=== PATIENT | male | born 1955 | race Caucasian/White ===

== ENCOUNTER 2020-06-24 11:51 | Emergency (ER) | payer OTHER ==
[~2020-06-24] VITALS: Ht 182.9 cm; Wt 67.6 kg
[~2020-06-24 11:51] MED LIST: AMLO-26 PO; CLIN-178 PO; CLOT1CRE90 TP; DEPER500 PO; QUET200T PO; TRIF10TA1 PO; TRIH2TAB21 PO; [UNRECOGNIZED DRUG - CODE] PO
[2020-06-24 11:57] VITALS: BP 99/70
--- NOTE | 2020-06-24 12:00 | NUR ---
Pt ambulated to ER bed 11.
--- NOTE | 2020-06-24 12:02 | NUR ---
PT TAKEN TO BED 11.
--- NOTE | 2020-06-24 12:07 | NUR ---
65 Y/O MALE C/O EAR DRAINAGE FROM BOTH EARS X5 DAYS WITH 3/10 PAIN DESCRIBES POUNDING RADIATES TO HEADACHE. PMH: SCHIZOPHRENIA NKA
[2020-06-24] MEDS ORDERED: THO25 PO (12:10)
[2020-06-24] MEDS ORDERED: ALPR0.5T2 PO (12:10)
[2020-06-24] MEDS ORDERED: ABI10 PO (12:10)
[2020-06-24] MEDS ORDERED: LISI-487 PO (12:10)
[2020-06-24] MEDS ORDERED: IBUP-2213 PO (13:11)
[2020-06-24] MEDS ORDERED: cortisporin otic OT (13:11)
[2020-06-24 13:20] VITALS: BP 99/70
--- NOTE | 2020-06-24 13:20 | NUR ---
Patient discharged with v/s stable. Written and verbal after care instructions given and explained. Patient alert, oriented and verbalized understanding of instructions. Ambulatory with steady gait. All questions addressed prior to discharge. ID band removed. Patient advised to follow up with PMD. Rx of CORTISPORIN & IBUPROFEN given. Patient educated on indication of medication including possible reaction and side effects. Opportunity to ask questions provided and answered.
== END 2020-06-24 13:20 | disposition home or self-care (01) ==
LOC: MED 11:51
DX: H60.93 Unspecified otitis externa, bilateral (principal); Z79.899 Other long term (current) drug therapy
CPT/HCPCS: 99283

== ENCOUNTER 2020-10-18 11:10 | Emergency (ER) | payer OTHER ==
[~2020-10-18] VITALS: Ht 180.3 cm; Wt 71.2 kg
[~2020-10-18 11:10] MED LIST changes: +ABI10 PO; +ALPR0.5T2 PO; -CLIN-178 PO; -CLOT1CRE90 TP; -DEPER500 PO; +IBUP-2213 PO; +LISI-487 PO; -QUET200T PO; +THO25 PO; -TRIF10TA1 PO; -TRIH2TAB21 PO; -[UNRECOGNIZED DRUG - CODE] PO; +cortisporin otic OT
[2020-10-18 11:19] VITALS: BP 111/80
--- NOTE | 2020-10-18 11:29 | NUR ---
PT AMBULATED TO RESTROOM FOR URINE SAMPLE
--- NOTE | 2020-10-18 11:39 | NUR ---
65/M presents to ED with c/o hematuria. Patient states he has had intermittent episodes of hematuria for one year, states "now it is happening all the time." Patient states he notified his doctor 3 months ago and was given Rx of unknown antibiotics but states no relief. Patient c/o right lower quadrant pain, non radiating, denies back or flank pain, states burning upon urination is present. Patient denies taking anything at home for pain, denies fever or chills.
[2020-10-18] MEDS ORDERED: KETOROLAC 30 MG/ML VIAL IM ONE (12:10)
--- NOTE | 2020-10-18 12:16 | NUR ---
PT TAKEN TO CT VIA W/C
--- NOTE | 2020-10-18 12:21 | NUR ---
PT BACK FROM CT
[2020-10-18 12:44] LABS: BASOPHILS # (AUTO) 0.1 K/uL (0.00-0.22); BASOPHILS % (AUTO) 1.7 % (0.0-2.0); EOSINOPHILS # (AUTO) 0.1 K/uL (0-0.4); HEMATOCRIT 27.4 % (36-52); MEAN CORPUSCULAR HEMOGLOBIN 29 pg (27-31); MEAN CORPUSCULAR HGB CONC 33 g/dL (33-37); MEAN CORPUSCULAR VOLUME 88.3 fL (80-94); MONOCYTES # (AUTO) 0.4 K/uL (0.8-1.0); MONOCYTES % (AUTO) 8.1 % (1.7-9.3); NEUTROPHILS # (AUTO) 3.3 K/uL (1.8-7.7); NEUTROPHILS % (AUTO) 68.2 % (42.2-75.2); PLATELET COUNT (AUTO) 254 K/uL (140-450); RED CELL DISTRIBUTION WIDTH 16.2 % (11.6-13.7); WHITE BLOOD COUNT (AUTO) 4.8 K/uL (4.8-10.8)
[2020-10-18 13:09] LABS: APPEARANCE,URINE CLOUDY (CLEAR); BILIRUBIN,URINE 1+ (NEGATIVE); BLOOD, URINE 3+ (NEGATIVE); COLOR,URINE RED (YELLOW); LEUKOCYTE ESTERASE ,URINE TRACE (NEGATIVE); NITRITE, URINE NEGATIVE (NEGATIVE); UGLUCOSE NEGATIVE (NEGATIVE)
[2020-10-18 13:14] LABS: ALBUMIN 3.5 g/dL (3.4-5.0); ANION GAP 11.3 (8-16); CARBON DIOXIDE 25.4 mmol/L (21-32); CREATININE 1.5 mg/dL (0.6-1.3); POTASSIUM 3.7 mmol/L (3.5-5.1); TOTAL BILIRUBIN 0.1 mg/dL (0.0-1.0)
[2020-10-18 13:20] LABS: RBC,URINE TOO NUMEROUS TO COUN /HPF (0-5); WBC,URINE 0-5 /HPF (0-5)
[2020-10-18] MEDS ORDERED: ACET-10509 PO (14:30)
--- NOTE | 2020-10-18 14:44 | NUR ---
Called [facility] for patient pickup. ETA 25 min.
--- NOTE | 2020-10-18 14:48 | NUR ---
Patient discharged with v/s stable. Written and verbal after care instructions given and explained. Patient alert, oriented and verbalized understanding of instructions. Ambulatory with steady gait. All questions addressed prior to discharge. ID band removed. Patient advised to follow up with PMD. Rx of Tylenol Extra Strength given. Patient educated on indication of medication including possible reaction and side effects. Opportunity to ask questions provided and answered.
[2020-10-18 14:49] VITALS: BP 115/74
== END 2020-10-18 14:48 | disposition home or self-care (01) ==
LOC: MED 11:10
DX: R31.9 Hematuria, unspecified (principal); N28.9 Disorder of kidney and ureter, unspecified; Z79.899 Other long term (current) drug therapy
CPT/HCPCS: 36415; 74176; 80053; 81001; 83690; 85025; 96372; 99284; J1885; 81002

== ENCOUNTER 2021-08-06 17:11 | Emergency (ER) | payer OTHER ==
[~2021-08-06] VITALS: Ht 180.3 cm; Wt 70.3 kg
[~2021-08-06 17:11] MED LIST changes: +ACET-10509 PO
[2021-08-06 17:16] VITALS: BP 115/80
[2021-08-06 18:31] LABS: BASOPHILS % (AUTO) 0.9 % (0.0-2.0); EOSINOPHILS % (AUTO) 0.1 % (0.0-4.0); HEMATOCRIT 27.4 % (36-52); HEMOGLOBIN 8.9 g/dL (12.0-18.0); LYMPHOCYTES # (AUTO) 0.8 K/uL (2.0-11.5); LYMPHOCYTES % (AUTO) 25.5 % (20.5-51.1); MEAN CORPUSCULAR HEMOGLOBIN 28 pg (27-31); MEAN CORPUSCULAR HGB CONC 32 g/dL (33-37); MONOCYTES # (AUTO) 0.2 K/uL (0.8-1.0); MONOCYTES % (AUTO) 5.7 % (1.7-9.3); NEUTROPHILS # (AUTO) 2.1 K/uL (1.8-7.7); NEUTROPHILS % (AUTO) 67.8 % (42.2-75.2); PLATELET COUNT (AUTO) 145 K/uL (140-450); RED BLOOD CELL COUNT(AUTO) 3.14 MIL/uL (4.20-6.10); RED CELL DISTRIBUTION WIDTH 27.7 % (11.6-13.7); WHITE BLOOD COUNT (AUTO) 3.1 K/uL (4.8-10.8)
[2021-08-06 18:52] LABS: ALBUMIN 3.2 g/dL (3.4-5.0); ANION GAP 11.3 (8-16); ASPARTATE AMINOTRANSFERASE 18 U/L (15-37); CARBON DIOXIDE 26.1 mmol/L (21-32); CHLORIDE 106 mmol/L (98-107); CREATININE 1.3 mg/dL (0.6-1.3); GFR ARICAN-AMERICAN 71 mL/min (>90); GLUCOSE 109 mg/dL (74-106); POTASSIUM 4.4 mmol/L (3.5-5.1); SALICYLATE 3.9 mg/dL (2.8-20.0); SODIUM SERUM 139 mmol/L (136-145); TOTAL BILIRUBIN 0.2 mg/dL (0.0-1.0); UREA NITROGEN, BLOOD 25 mg/dL (7-18)
[2021-08-06 18:53] LABS: ACETAMINOPHEN < 0.5 ug/ml (10-30)
[2021-08-06 20:19] LABS: BARBITURATE, URINE NEGATIVE ng/ml (NEG <=200)
[2021-08-06 20:20] LABS: BENZODIAZEPINE, URINE NEGATIVE ng/mL (NEG <=200); CANNABINOID, URINE POSITIVE ng/mL (NEG <=50); COCAINE, URINE NEGATIVE ng/mL (NEG <=300); OPIATE, URINE NEGATIVE ng/mL (NEG <=2000); PHENCYCLIDINE SCREEN,URINE NEGATIVE ng/mL (NEG <=25)
[2021-08-06] MEDS ORDERED: chlorproMAZINE 25 MG TAB PO STA (21:25)
[2021-08-07] MEDS ORDERED: ARIPiprazole 10 MG TAB ONE (06:57)
[2021-08-07] MEDS ORDERED: chlorproMAZINE 25 MG TAB ONE (06:58)
[2021-08-07 07:15] VITALS: BP 110/66
[2021-08-07] MEDS ORDERED: chlorproMAZINE 25 MG TAB PO SCH (09:00)
[2021-08-07] MEDS ORDERED: ARIPiprazole 10 MG TAB PO SCH (09:00)
== END 2021-08-07 07:15 ==
LOC: MED 17:11
DX: R45.851 Suicidal ideations (principal); Z20.822 Contact with and (suspected) exposure to COVID-19; F20.9 Schizophrenia, unspecified; Z79.899 Other long term (current) drug therapy
CPT/HCPCS: 36415; 80053; 80305; 85025; 87426; 87635; 93005; 99285; C9803; G0480; G0482